=== PATIENT | female | born 1945 | race Caucasian/White ===

== ENCOUNTER 2017-03-11 06:03 | Inpatient (IN) ==
[2017-03-11 07:03] LABS: Basophils % 0.7 % (0.0-0.8); Eosinophils # 0.2 10*3/uL (0.0-0.87); Eosinophils % 3.6 % (0.00-10.9); Hemoglobin 12.3 GM/DL (12.0-16.0); Immature Granulocytes % 0.2 %; Immature Granulocytes Absolute 0.01 #; Lymphocytes # 1.8 10*3/uL (1.4-4.0); Mean Corpuscular HGB Conc 33.2 GM/DL (32-36); Mean Corpuscular Hemoglobin 30 PG (27-34); Mean Platelet Volume 10.7 FL (9.6-12.0); Monocytes # 0.5 10*3/uL (0.11-0.8); Monocytes % 8.3 % (1.7-12.7); Neutrophils # 3.6 10*3/uL (1.4-7.4); Neutrophils % 58.2 % (38.7-73.9); Platelet Count 173 T/CUMM (130-400); Red Blood Count 4.11 MC/CUMM (3.8-5.5); Red Cell Distribution Width 13.7 % (9.3-17.3); White Blood Count 6.1 T/CUMM (4-12)
[2017-03-11 07:23] LABS: PT Patient Result 10.7 SECS; Partial Thromboplastin Time 28.7 SECS (0-40)
[2017-03-11] MEDS ORDERED: LIDOCAINE 1% 20 ML VIAL ONE (07:39)
[2017-03-11 07:42] LABS: Calcium 8.8 MG/DL (8.5-10.1); Magnesium 2.1 MG/DL (1.8-2.4); Osmolality,Calculated 278.5 MOS/KG (273-304); Potassium 3.5 MMOL/L (3.5-5.1)
[2017-03-11] MEDS ORDERED: HEPARIN 5,000 UNIT/1 ML VIAL ONE (07:49)
[2017-03-11] MEDS ORDERED: HEPARIN/NACL 0.9% 2 UNITS/ML 1,000 ML IV ONE ×2 (08:23→11:41)
[2017-03-11] MEDS ORDERED: HEPARIN DRIP 25,000 UNITS/500 ML PREMIX IV ONE (09:46)
[2017-03-11 10:41] LABS: Apearance,Urine CLEAR (Clear); Bilirubin,Urine Negative (Negative); Blood, Urine Negative (Negative); Glucose,Urine (UA) Negative (Negative); Ketones,Urine Negative (Negative); Nitrite,Urine Negative (Negative); Protein,Urine Negative; RBC,Urine 3 /HPF (0-4); Urine Color Straw (Yellow); Urine Specific Gravity 1.004 (1.001-1.035); Urine Urobilinogen < 2.0 EU/DL (0.2-1.0); WBC,Urine <1 /HPF (0-6)
[2017-03-11] MEDS ORDERED: ADENOSINE 90 MG/30 ML VIAL IV ONE (12:40)
[2017-03-11] MEDS ORDERED: ONDANSETRON 4 MG/2 ML VIAL IV PRN (12:54)
[2017-03-11] MEDS ORDERED: GLUCAGON 1 MG VIAL IM PRN (12:54)
[2017-03-11] MEDS ORDERED: DEXTROSE 50% 25 GM/50 ML VIAL IV PRN (12:54)
[2017-03-11] MEDS ORDERED: MORPHINE 2 MG/1 ML SYRINGE IV PRN (12:54)
[2017-03-11] MEDS ORDERED: ACETAMINOPHEN 325 MG TABLET PO PRN (12:54)
[2017-03-11] MEDS ORDERED: ZALEPLON 5 MG CAPSULE PO PRN (12:54)
[2017-03-11] MEDS ORDERED: PROPOFOL 200 MG/20 ML VIAL IV ONE (13:59)
[2017-03-11] MEDS ORDERED: MIDAZOLAM 2 MG/2 ML VIAL ONE (13:59)
[2017-03-11] MEDS ORDERED: HEPARIN 10,000 UNIT/10 ML VIAL ONE (13:59)
[2017-03-11] MEDS ORDERED: PHENYLEPHRINE DRIP 20 MG/250 ML PREMIX IV ONE (13:59)
[2017-03-11] MEDS ORDERED: SEVOFLURANE 1 UNIT/15 MINUTE INH ONE (13:59)
[2017-03-11] MEDS ORDERED: ONDANSETRON 4 MG/2 ML VIAL ONE (14:00)
[2017-03-11] MEDS ORDERED: fentaNYL 100 MCG/2 ML VIAL ONE (14:00)
[2017-03-11] MEDS ORDERED: METOCLOPRAMIDE 10 MG/2 ML VIAL ONE (14:00)
[2017-03-11] MEDS ORDERED: DEXAMETHASONE 10 MG/1 ML VIAL ONE (14:00)
[2017-03-11] MEDS ORDERED: PROTAMINE SULFATE 50 MG/5 ML VIAL IV ONE (14:00)
[2017-03-11] MEDS ORDERED: LACTATED RINGERS 1,000 ML IV ONE (14:01)
[2017-03-11] MEDS ORDERED: ROCURONIUM 100 MG/10 ML VIAL IV ONE (14:01)
[2017-03-11] MEDS ORDERED: diphenhydrAMINE 50 MG/1 ML VIAL IV ONE (14:32)
[2017-03-11] MEDS ORDERED: hydrALAZINE 25 MG TABLET PO SCH (15:00)
[2017-03-11] MEDS ORDERED: diphenhydrAMINE CAP 25 MG CAPSULE PO PRN (17:20)
[2017-03-11] MEDS ORDERED: BISACODYL 5 MG TABLET PO PRN (17:20)
[2017-03-11] MEDS: CLOPIDOGREL 75 MG TABLET PO SCH (17:26)
[2017-03-11] MEDS: CARVEDILOL 25 MG TABLET PO SCH ×2 (17:27→20:22)
[2017-03-11] MEDS: ASCORBIC ACID 500 MG TABLET PO SCH (17:27)
[2017-03-11] MEDS ORDERED: FUROSEMIDE 20 MG/2 ML VIAL IV ONE (20:00)
[2017-03-11] MEDS: DABIGATRAN 150 MG CAPSULE PO SCH (20:21)
[2017-03-11] MEDS: LORATADINE 10 MG TABLET PO SCH (20:22)
[2017-03-11] MEDS: PANTOPRAZOLE 40 MG TABLET PO SCH (20:22)
[2017-03-11] MEDS: FLECAINIDE 100 MG TABLET PO SCH (21:02)
[2017-03-12 05:02] LABS: Basophils % 0.1 % (0.0-0.8); Hematocrit 33.4 VOL% (35.7-47.0); Hemoglobin 11.3 GM/DL (12.0-16.0); Immature Granulocytes % 0.5 %; Immature Granulocytes Absolute 0.04 #; Lymphocytes # 1.2 10*3/uL (1.4-4.0); Lymphocytes % 13.2 % (21.3-54.2); Mean Corpuscular HGB Conc 33.8 GM/DL (32-36); Mean Corpuscular Hemoglobin 30 PG (27-34); Mean Corpuscular Volume 88.6 FL (87-102); Mean Platelet Volume 10.9 FL (9.6-12.0); Monocytes # 0.3 10*3/uL (0.11-0.8); Monocytes % 3.2 % (1.7-12.7); Neutrophils # 7.3 10*3/uL (1.4-7.4); Platelet Count 156 T/CUMM (130-400); Red Blood Count 3.77 MC/CUMM (3.8-5.5); Red Cell Distribution Width 13.5 % (9.3-17.3); White Blood Count 8.8 T/CUMM (4-12)
[2017-03-12 05:45] LABS: Calcium 8.3 MG/DL (8.5-10.1); Osmolality,Calculated 280.5 MOS/KG (273-304); Potassium 3.4 MMOL/L (3.5-5.1)
[2017-03-12] MEDS: CLOPIDOGREL 75 MG TABLET PO SCH (08:23)
[2017-03-12] MEDS: LOSARTAN 50 MG TABLET PO SCH (08:23)
[2017-03-12] MEDS: ASCORBIC ACID 500 MG TABLET PO SCH (08:23)
[2017-03-12] MEDS: POTASSIUM GLUCONATE 500 MG TABLET PO SCH (08:23)
[2017-03-12] MEDS: CARVEDILOL 25 MG TABLET PO SCH ×2 (08:23→21:35)
[2017-03-12] MEDS: FLECAINIDE 100 MG TABLET PO SCH (08:23)
[2017-03-12] MEDS: DABIGATRAN 150 MG CAPSULE PO SCH ×2 (08:23→21:36)
[2017-03-12] MEDS: FUROSEMIDE 20 MG TABLET PO SCH (08:24)
[2017-03-12] MEDS: PANTOPRAZOLE 40 MG TABLET PO SCH ×2 (08:24→21:35)
[2017-03-12] MEDS: MULTIVITAMIN (CENTRUM) TABLET PO SCH (08:24)
[2017-03-12] MEDS: MAGNESIUM OXIDE 400 MG TABLET PO SCH (08:24)
[2017-03-12] MEDS: DILTIAZEM CD 120 MG CAPSULE PO SCH ×2 (08:59→21:35)
[2017-03-12] MEDS ORDERED: POLYETHYLENE GLYCOL POWDER 17 GM PACK PO PRN (10:54)
[2017-03-12] MEDS: LORATADINE 10 MG TABLET PO SCH (21:35)
[2017-03-12] MEDS: FLECAINIDE 50 MG TABLET PO SCH (21:35)
[2017-03-13 08:39] LABS: Calcium 8.3 MG/DL (8.5-10.1); Magnesium 2.1 MG/DL (1.8-2.4); Osmolality,Calculated 283.3 MOS/KG (273-304); Potassium 3.4 MMOL/L (3.5-5.1)
[2017-03-13] MEDS ORDERED: METOCLOPRAMIDE 5 MG TABLET PO PRN (10:30)
[2017-03-13] MEDS: FLECAINIDE 50 MG TABLET PO SCH ×2 (11:54→21:20)
[2017-03-13] MEDS: CLOPIDOGREL 75 MG TABLET PO SCH (11:54)
[2017-03-13] MEDS: ASCORBIC ACID 500 MG TABLET PO SCH (11:54)
[2017-03-13] MEDS: POTASSIUM GLUCONATE 500 MG TABLET PO SCH (11:55)
[2017-03-13] MEDS: DILTIAZEM CD 120 MG CAPSULE PO SCH ×2 (11:55→21:21)
[2017-03-13] MEDS: LOSARTAN 50 MG TABLET PO SCH (11:55)
[2017-03-13] MEDS: DABIGATRAN 150 MG CAPSULE PO SCH (11:56)
[2017-03-13] MEDS: MULTIVITAMIN (CENTRUM) TABLET PO SCH (11:56)
[2017-03-13] MEDS: PANTOPRAZOLE 40 MG TABLET PO SCH ×2 (11:56→21:21)
[2017-03-13] MEDS: FUROSEMIDE 20 MG TABLET PO SCH (11:56)
[2017-03-13] MEDS: CARVEDILOL 25 MG TABLET PO SCH ×2 (11:56→21:21)
[2017-03-13] MEDS: MAGNESIUM OXIDE 400 MG TABLET PO SCH (12:06)
[2017-03-13] MEDS: LORATADINE 10 MG TABLET PO SCH (21:21)
[2017-03-14] MEDS ORDERED: VANCOMYCIN 500 MG VIAL IRRIG ONE (06:00)
[2017-03-14] MEDS ORDERED: VANCOMYCIN INJ 1,000 MG in SODIUM CHLORIDE 0.9% 250 ML IV ONE (06:00)
[2017-03-14 06:12] LABS: Calcium 8.5 MG/DL (8.5-10.1); Osmolality,Calculated 281.4 MOS/KG (273-304); Potassium 3.4 MMOL/L (3.5-5.1)
[2017-03-14 07:07] LABS: Basophils % 0.5 % (0.0-0.8); Eosinophils # 0.1 10*3/uL (0.0-0.87); Eosinophils % 1.4 % (0.00-10.9); Hemoglobin 10.7 GM/DL (12.0-16.0); Immature Granulocytes % 0.3 %; Immature Granulocytes Absolute 0.03 #; Lymphocytes % 22.9 % (21.3-54.2); Mean Corpuscular HGB Conc 32.4 GM/DL (32-36); Mean Corpuscular Hemoglobin 30 PG (27-34); Mean Corpuscular Volume 91.4 FL (87-102); Mean Platelet Volume 11.4 FL (9.6-12.0); Monocytes # 0.7 10*3/uL (0.11-0.8); Monocytes % 7.3 % (1.7-12.7); Neutrophils % 67.6 % (38.7-73.9); Platelet Count 163 T/CUMM (130-400); Red Blood Count 3.61 MC/CUMM (3.8-5.5); Red Cell Distribution Width 13.7 % (9.3-17.3); White Blood Count 8.9 T/CUMM (4-12)
[2017-03-14] MEDS ORDERED: MAGNESIUM CHLORIDE 64 MG TABLET PO SCH (09:00)
[2017-03-14] MEDS ORDERED: POLYETHYLENE GLYCOL POWDER 17 GM PACK PO SCH (09:00)
[2017-03-14 11:42] VITALS: BP 151/93
[2017-03-14] MEDS: FLECAINIDE 50 MG TABLET PO SCH (13:45)
[2017-03-14] MEDS: ASCORBIC ACID 500 MG TABLET PO SCH (13:46)
[2017-03-14] MEDS: CARVEDILOL 25 MG TABLET PO SCH (13:47)
[2017-03-14] MEDS: CLOPIDOGREL 75 MG TABLET PO SCH (13:48)
[2017-03-14] MEDS: LOSARTAN 50 MG TABLET PO SCH (13:48)
[2017-03-14] MEDS: PANTOPRAZOLE 40 MG TABLET PO SCH (13:49)
[2017-03-14] MEDS: POTASSIUM GLUCONATE 500 MG TABLET PO SCH (13:49)
[2017-03-14] MEDS: MULTIVITAMIN (CENTRUM) TABLET PO SCH (13:49)
[2017-03-14] MEDS: FUROSEMIDE 20 MG TABLET PO SCH (13:50)
[2017-03-14] MEDS: DILTIAZEM CD 120 MG CAPSULE PO SCH (13:50)
== END 2017-03-14 14:18 | disposition home or self-care (01) | DRG 274 ==
LOC: N.CL 06:03 → N.CC 15:43 → N.TELES 21:58
PROVIDERS: ADMIT Internal Medicine Clinical Cardiac Electrophysiology; ATTEND Internal Medicine Clinical Cardiac Electrophysiology

== ENCOUNTER 2017-05-24 15:47 | Inpatient (IN) ==
[2017-05-24] MEDS ORDERED: DIGOXIN 0.5 MG/2 ML AMP IV STA (16:29)
[2017-05-24 16:34] LABS: Basophils # 0.1 10*3/uL (0.0-0.2); Basophils % 0.5 % (0.0-0.8); Eosinophils # 0.2 10*3/uL (0.0-0.87); Eosinophils % 2.2 % (0.00-10.9); Hematocrit 37.5 VOL% (35.7-47.0); Immature Granulocytes % 0.7 %; Immature Granulocytes Absolute 0.08 #; Lymphocytes % 18.2 % (21.3-54.2); Mean Corpuscular Hemoglobin 30 PG (27-34); Mean Corpuscular Volume 93.1 FL (87-102); Mean Platelet Volume 10.9 FL (9.6-12.0); Monocytes # 0.7 10*3/uL (0.11-0.8); Neutrophils % 72.4 % (38.7-73.9); Platelet Count 230 T/CUMM (130-400); Red Blood Count 4.03 MC/CUMM (3.8-5.5); Red Cell Distribution Width 13.7 % (9.3-17.3); White Blood Count 11.1 T/CUMM (4-12)
[2017-05-24 16:42] LABS: PT Patient Result 10.4 SECS
[2017-05-24 16:53] LABS: Alanine Aminotransferase 18 U/L (13-56); Albumin 3.7 G/DL (3.4-5.0); Alkaline Phosphatase 84 U/L (45-117); Aspartate Amino Transferase 21 U/L (0-37); Blood Urea Nitrogen 29 MG/DL (7-18); Calcium 8.8 MG/DL (8.5-10.1); Glucose 133 MG/DL (74-106); Magnesium 2.1 MG/DL (1.8-2.4); Osmolality,Calculated 288.3 MOS/KG (273-304); Sodium 141 MMOL/L (136-145); Total Protein 7.7 G/DL (6.4-8.3); Troponin I Only < 0.015 NG/ML (0.00-0.045)
[2017-05-24] MEDS ORDERED: DIGOXIN 0.5 MG/2 ML AMP ONE (16:54)
[2017-05-24] MEDS ORDERED: FLECAINIDE 100 MG TABLET PO SCH (21:00)
[2017-05-24] MEDS ORDERED: CARVEDILOL 25 MG TABLET PO SCH (21:00)
[2017-05-24] MEDS: DILTIAZEM CD 180 MG CAPSULE PO SCH (21:42)
[2017-05-24] MEDS: CARVEDILOL 25 MG TABLET PO SCH (21:43)
[2017-05-24] MEDS ORDERED: MAGNESIUM SULF RIDER 4 GM in PREMIX 1 EACH IV PRN (22:23)
[2017-05-24] MEDS ORDERED: MAGNESIUM SULF RIDER 2 GM in PREMIX 1 EACH IV PRN (22:23)
[2017-05-24] MEDS: LORATADINE 10 MG TABLET PO SCH (22:46)
[2017-05-24] MEDS: FLECAINIDE 50 MG TABLET PO SCH (22:46)
[2017-05-25] MEDS ORDERED: FUROSEMIDE 20 MG TABLET PO SCH (08:00)
[2017-05-25] MEDS ORDERED: CLOPIDOGREL 75 MG TABLET PO SCH (09:00)
[2017-05-25] MEDS ORDERED: LOSARTAN 50 MG TABLET PO SCH (09:00)
[2017-05-25] MEDS ORDERED: FLECAINIDE 50 MG TABLET PO SCH (09:00)
[2017-05-25] MEDS ORDERED: SODIUM CHLORIDE 0.9% 500 ML IV ONE (09:39)
[2017-05-25] MEDS: FLECAINIDE 50 MG TABLET PO SCH ×2 (10:43→22:07)
[2017-05-25] MEDS: MULTIVITAMIN (CENTRUM) TABLET PO SCH (10:43)
[2017-05-25] MEDS: POTASSIUM CHLORIDE 20 MEQ TABLET PO SCH ×2 (10:44→12:38)
[2017-05-25] MEDS: APIXABAN 5 MG TABLET PO SCH ×2 (10:45→22:06)
[2017-05-25] MEDS: DILTIAZEM CD 180 MG CAPSULE PO SCH ×2 (10:45→22:02)
[2017-05-25] MEDS: ASCORBIC ACID 500 MG TABLET PO SCH ×2 (10:46→12:38)
[2017-05-25] MEDS: PANTOPRAZOLE 40 MG TABLET PO SCH (10:46)
[2017-05-25] MEDS: CARVEDILOL 25 MG TABLET PO SCH ×2 (10:47→22:07)
[2017-05-25] MEDS: SODIUM CHLORIDE 0.9% 1,000 ML IV SCH ×3 (12:19→23:13)
[2017-05-25] MEDS: MAGNESIUM OXIDE 400 MG TABLET PO SCH (12:38)
[2017-05-25] MEDS ORDERED: LORATADINE 10 MG TABLET PO SCH ×2 (21:00)
[2017-05-25] MEDS: LORATADINE 10 MG TABLET PO SCH (22:06)
[2017-05-26 04:54] LABS: Basophils % 0.6 % (0.0-0.8); Eosinophils # 0.2 10*3/uL (0.0-0.87); Eosinophils % 2.8 % (0.00-10.9); Hematocrit 29.7 VOL% (35.7-47.0); Hemoglobin 9.3 GM/DL (12.0-16.0); Immature Granulocytes % 0.3 %; Immature Granulocytes Absolute 0.02 #; Lymphocytes # 1.5 10*3/uL (1.4-4.0); Lymphocytes % 24.2 % (21.3-54.2); Mean Corpuscular HGB Conc 31.3 GM/DL (32-36); Mean Corpuscular Hemoglobin 30 PG (27-34); Mean Corpuscular Volume 94.3 FL (87-102); Mean Platelet Volume 10.8 FL (9.6-12.0); Monocytes # 0.5 10*3/uL (0.11-0.8); Monocytes % 8.2 % (1.7-12.7); Neutrophils % 63.9 % (38.7-73.9); Platelet Count 145 T/CUMM (130-400); Red Blood Count 3.15 MC/CUMM (3.8-5.5); Red Cell Distribution Width 13.5 % (9.3-17.3); White Blood Count 6.3 T/CUMM (4-12)
[2017-05-26 05:28] LABS: Calcium 8.2 MG/DL (8.5-10.1); Magnesium 2.1 MG/DL (1.8-2.4); Osmolality,Calculated 284.1 MOS/KG (273-304); Potassium 3.7 MMOL/L (3.5-5.1)
[2017-05-26 08:50] LABS: % Iron Saturation 10.8 % (18-50)
[2017-05-26] MEDS: SODIUM CHLORIDE 0.9% 1,000 ML IV SCH ×2 (09:01→13:18)
[2017-05-26 09:29] LABS: Folate 18.7 NG/ML (5.4-24.0)
[2017-05-26] MEDS: ASCORBIC ACID 500 MG TABLET PO SCH ×2 (13:19→13:24)
[2017-05-26] MEDS: POTASSIUM CHLORIDE 20 MEQ TABLET PO SCH ×3 (13:19→13:25)
[2017-05-26] MEDS: MAGNESIUM OXIDE 400 MG TABLET PO SCH (13:24)
[2017-05-26] MEDS: APIXABAN 5 MG TABLET PO SCH ×2 (13:25→21:28)
[2017-05-26] MEDS: DILTIAZEM CD 240 MG CAPSULE PO SCH ×2 (13:25→21:28)
[2017-05-26] MEDS: PANTOPRAZOLE 40 MG TABLET PO SCH (13:25)
[2017-05-26] MEDS: FLECAINIDE 50 MG TABLET PO SCH ×2 (13:25→21:28)
[2017-05-26] MEDS: CARVEDILOL 25 MG TABLET PO SCH ×2 (13:25→21:28)
[2017-05-26] MEDS: MULTIVITAMIN (CENTRUM) TABLET PO SCH (13:25)
[2017-05-26] MEDS ORDERED: ZALEPLON 5 MG CAPSULE PO PRN (13:34)
[2017-05-26] MEDS ORDERED: ACETAMINOPHEN 325 MG TABLET PO PRN (13:34)
[2017-05-26] MEDS ORDERED: guaiFENesin/DM ER 600-30 MG TABLET PO PRN (13:34)
[2017-05-26] MEDS ORDERED: ONDANSETRON 4 MG/2 ML VIAL IV PRN (13:34)
[2017-05-26] MEDS ORDERED: BISACODYL 5 MG TABLET PO PRN (13:34)
[2017-05-26] MEDS: LORATADINE 10 MG TABLET PO SCH (21:28)
[2017-05-27 08:44] LABS: Basophils % 0.7 % (0.0-0.8); Eosinophils # 0.2 10*3/uL (0.0-0.87); Eosinophils % 3.4 % (0.00-10.9); Hematocrit 31.9 VOL% (35.7-47.0); Hemoglobin 10.2 GM/DL (12.0-16.0); Immature Granulocytes % 0.5 %; Immature Granulocytes Absolute 0.03 #; Lymphocytes # 1.5 10*3/uL (1.4-4.0); Lymphocytes % 24.5 % (21.3-54.2); Mean Corpuscular Hemoglobin 30 PG (27-34); Mean Corpuscular Volume 94.1 FL (87-102); Mean Platelet Volume 10.9 FL (9.6-12.0); Monocytes # 0.4 10*3/uL (0.11-0.8); Monocytes % 7.2 % (1.7-12.7); Neutrophils # 3.9 10*3/uL (1.4-7.4); Neutrophils % 63.7 % (38.7-73.9); Platelet Count 169 T/CUMM (130-400); Red Blood Count 3.39 MC/CUMM (3.8-5.5); Red Cell Distribution Width 13.5 % (9.3-17.3); White Blood Count 6.1 T/CUMM (4-12)
[2017-05-27] MEDS: POTASSIUM CHLORIDE 20 MEQ TABLET PO SCH ×2 (09:09→13:00)
[2017-05-27] MEDS: ASCORBIC ACID 500 MG TABLET PO SCH ×2 (09:09→13:00)
[2017-05-27] MEDS: CARVEDILOL 25 MG TABLET PO SCH (09:09)
[2017-05-27] MEDS: APIXABAN 5 MG TABLET PO SCH (09:09)
[2017-05-27] MEDS: PANTOPRAZOLE 40 MG TABLET PO SCH (09:09)
[2017-05-27 09:10] LABS: Calcium 8.9 MG/DL (8.5-10.1); Magnesium 2.2 MG/DL (1.8-2.4); Osmolality,Calculated 284.3 MOS/KG (273-304); Potassium 4.1 MMOL/L (3.5-5.1)
[2017-05-27] MEDS: DILTIAZEM CD 240 MG CAPSULE PO SCH (09:10)
[2017-05-27] MEDS: FLECAINIDE 50 MG TABLET PO SCH (09:10)
[2017-05-27] MEDS: MULTIVITAMIN (CENTRUM) TABLET PO SCH (09:10)
[2017-05-27 11:25] VITALS: BP 94/55
[2017-05-27] MEDS: MAGNESIUM OXIDE 400 MG TABLET PO SCH (13:00)
== END 2017-05-27 13:43 | disposition home or self-care (01) | DRG 310 ==
LOC: N.ED 15:47 → N.EDINP 15:47 → SUATTDRO 19:10 → N.TELEN 19:30
PROVIDERS: ADMIT Internal Medicine Cardiovascular Disease; ATTEND Internal Medicine Cardiovascular Disease

== ENCOUNTER 2017-11-03 07:24 | Observation (INO) ==
[2017-11-03] MEDS ORDERED: DILTIAZEM 50 MG/10 ML VIAL IV ONE (07:41)
[2017-11-03] MEDS ORDERED: DILTIAZEM 50 MG/10 ML VIAL IV STA (07:44)
[2017-11-03] MEDS ORDERED: DILTIAZEM 100 MG VIAL.ADD IV ONE (07:46)
[2017-11-03] MEDS ORDERED: SODIUM CHLORIDE 0.9% 100 ML IV ONE (07:47)
[2017-11-03] MEDS: DILTIAZEM INJ 100 MG in SODIUM CHLORIDE 0.9% 100 ML IV SCH ×2 (07:59→12:43)
[2017-11-03 08:25] LABS: Basophils # 0.1 10*3/uL (0.0-0.2); Basophils % 0.9 % (0.0-0.8); Eosinophils # 0.1 10*3/uL (0.0-0.87); Eosinophils % 1.6 % (0.00-10.9); Hematocrit 41.1 VOL% (35.7-47.0); Hemoglobin 13.6 GM/DL (12.0-16.0); Immature Granulocytes % 0.3 %; Immature Granulocytes Absolute 0.02 #; Lymphocytes # 1.3 10*3/uL (1.4-4.0); Lymphocytes % 19.4 % (21.3-54.2); Mean Corpuscular HGB Conc 33.1 GM/DL (32-36); Mean Corpuscular Hemoglobin 29 PG (27-34); Mean Corpuscular Volume 88.6 FL (87-102); Mean Platelet Volume 10.5 FL (9.6-12.0); Monocytes # 0.4 10*3/uL (0.11-0.8); Monocytes % 6.1 % (1.7-12.7); Neutrophils # 4.8 10*3/uL (1.4-7.4); Neutrophils % 71.7 % (38.7-73.9); Platelet Count 180 T/CUMM (130-400); Red Blood Count 4.64 MC/CUMM (3.8-5.5); Red Cell Distribution Width 14.2 % (9.3-17.3); White Blood Count 6.7 T/CUMM (4-12)
[2017-11-03 08:37] LABS: PT Patient Result 10.7 SECS; Partial Thromboplastin Time 28.6 SECS (0-40)
[2017-11-03 08:49] LABS: Alanine Aminotransferase 16 U/L (13-56); Albumin 3.6 G/DL (3.4-5.0); Alkaline Phosphatase 90 U/L (45-117); Aspartate Amino Transferase 17 U/L (0-37); Calcium 8.6 MG/DL (8.5-10.1); Total Protein 7.9 G/DL (6.4-8.3)
[2017-11-03 08:50] LABS: Blood Urea Nitrogen 12 MG/DL (7-18); Glucose 123 MG/DL (74-106); Osmolality,Calculated 283.1 MOS/KG (273-304); Potassium 3.6 MMOL/L (3.5-5.1); Sodium 142 MMOL/L (136-145); Troponin I Only < 0.015 NG/ML (0.00-0.045)
[2017-11-03] MEDS ORDERED: LACTULOSE 20 GM/30 ML UDCUP PO PRN (11:33)
[2017-11-03] MEDS ORDERED: ZALEPLON 5 MG CAPSULE PO PRN (11:33)
[2017-11-03] MEDS ORDERED: ACETAMINOPHEN 325 MG TABLET PO PRN (11:33)
[2017-11-03] MEDS ORDERED: MAGNESIUM SULF RIDER 4 GM in PREMIX 1 EACH IV PRN (11:33)
[2017-11-03] MEDS ORDERED: MAGNESIUM SULF RIDER 2 GM in PREMIX 1 EACH IV PRN (11:33)
[2017-11-03] MEDS ORDERED: guaiFENesin/DM ER 600-30 MG TABLET PO PRN (11:33)
[2017-11-03] MEDS ORDERED: diphenhydrAMINE CAP 25 MG CAPSULE PO PRN (11:33)
[2017-11-03] MEDS ORDERED: ONDANSETRON 4 MG/2 ML VIAL IV PRN (11:33)
[2017-11-03] MEDS: FUROSEMIDE 20 MG TABLET PO SCH (16:30)
[2017-11-03] MEDS: POTASSIUM CHLORIDE 20 MEQ TABLET PO SCH (16:30)
[2017-11-03] MEDS: LOSARTAN 50 MG TABLET PO SCH (16:30)
[2017-11-03] MEDS: APIXABAN 5 MG TABLET PO SCH ×2 (16:30→20:18)
[2017-11-03] MEDS: hydroCHLOROthiazide 25 MG TABLET PO SCH (16:30)
[2017-11-03] MEDS: PANTOPRAZOLE 40 MG TABLET PO SCH (16:31)
[2017-11-03] MEDS: MAGNESIUM OXIDE 400 MG TABLET PO SCH (16:31)
[2017-11-03] MEDS: VITAMIN E 400 UNIT CAPSULE PO SCH (16:32)
[2017-11-03] MEDS: ASCORBIC ACID 500 MG TABLET PO SCH (16:32)
[2017-11-03] MEDS ORDERED: METOPROLOL TARTRATE 25 MG TABLET PO ONE (19:50)
[2017-11-03] MEDS: SIMETHICONE CHEW 125 MG TABLET PO PRN (20:18)
[2017-11-03] MEDS: DOCUSATE SODIUM 100 MG CAPSULE PO SCH (20:18)
[2017-11-03] MEDS ORDERED: LORATADINE 10 MG TABLET PO SCH (21:00)
[2017-11-03] MEDS: METOPROLOL TARTRATE 25 MG TABLET PO SCH (21:53)
[2017-11-03] MEDS ORDERED: SIMETHICONE CHEW 125 MG TABLET PO SCH (22:00)
[2017-11-04] MEDS: SIMETHICONE CHEW 125 MG TABLET PO PRN (00:20)
[2017-11-04 04:50] LABS: Basophils # 0.1 10*3/uL (0.0-0.2); Basophils % 0.9 % (0.0-0.8); Eosinophils # 0.2 10*3/uL (0.0-0.87); Hemoglobin 12.9 GM/DL (12.0-16.0); Immature Granulocytes % 0.4 %; Immature Granulocytes Absolute 0.03 #; Lymphocytes # 2.1 10*3/uL (1.4-4.0); Lymphocytes % 31.7 % (21.3-54.2); Mean Corpuscular HGB Conc 33.9 GM/DL (32-36); Mean Corpuscular Hemoglobin 30 PG (27-34); Mean Platelet Volume 10.4 FL (9.6-12.0); Monocytes # 0.5 10*3/uL (0.11-0.8); Monocytes % 6.7 % (1.7-12.7); Neutrophils # 3.8 10*3/uL (1.4-7.4); Neutrophils % 57.3 % (38.7-73.9); Platelet Count 182 T/CUMM (130-400); Red Blood Count 4.32 MC/CUMM (3.8-5.5); Red Cell Distribution Width 14.5 % (9.3-17.3); White Blood Count 6.7 T/CUMM (4-12)
[2017-11-04 05:23] LABS: Calcium 8.8 MG/DL (8.5-10.1); Osmolality,Calculated 282.1 MOS/KG (273-304); Potassium 3.6 MMOL/L (3.5-5.1); Risk Ratio 4.29; VLDL CHOLESTEROL 20.4 MG/DL
[2017-11-04 08:11] LABS: Apearance,Urine CLEAR (Clear); Bacteria,Urine Occasional /HPF (Few); Bilirubin,Urine Negative (Negative); Blood, Urine Negative (Negative); Glucose,Urine (UA) Negative (Negative); Ketones,Urine Negative (Negative); Mucus,Urine Occasional /LPF (Occasional); Nitrite,Urine Negative (Negative); Protein,Urine Negative; RBC,Urine 2 /HPF (0-4); Squamous Epithelial Cell,Urine Occasional /HPF (0-10); Urine Color Yellow (Yellow); Urine Specific Gravity 1.008 (1.001-1.035); Urine Urobilinogen < 2.0 EU/DL (0.2-1.0); WBC,Urine 4 /HPF (0-6)
[2017-11-04] MEDS: ASCORBIC ACID 500 MG TABLET PO SCH ×2 (09:46→12:10)
[2017-11-04] MEDS: FUROSEMIDE 20 MG TABLET PO SCH (09:46)
[2017-11-04] MEDS: PANTOPRAZOLE 40 MG TABLET PO SCH (09:47)
[2017-11-04] MEDS: POTASSIUM CHLORIDE 20 MEQ TABLET PO SCH (09:47)
[2017-11-04] MEDS: APIXABAN 5 MG TABLET PO SCH (09:47)
[2017-11-04] MEDS: LOSARTAN 50 MG TABLET PO SCH (09:47)
[2017-11-04] MEDS: hydroCHLOROthiazide 25 MG TABLET PO SCH (09:47)
[2017-11-04] MEDS: METOPROLOL TARTRATE 25 MG TABLET PO SCH (09:47)
[2017-11-04] MEDS: DOCUSATE SODIUM 100 MG CAPSULE PO SCH (09:47)
[2017-11-04] MEDS: VITAMIN E 400 UNIT CAPSULE PO SCH (09:47)
[2017-11-04] MEDS ORDERED: DILTIAZEM CD 240 MG CAPSULE PO SCH (10:00)
[2017-11-04] MEDS: DILTIAZEM INJ 100 MG in SODIUM CHLORIDE 0.9% 100 ML IV SCH (10:16)
[2017-11-04] MEDS ORDERED: [UNRECOGNIZED DRUG - OTHER] PO SCH (12:00)
[2017-11-04] MEDS ORDERED: HAIR SKIN PO SCH (12:00)
[2017-11-04] MEDS: MAGNESIUM OXIDE 400 MG TABLET PO SCH (12:10)
[2017-11-04 15:12] VITALS: BP 108/66
== END 2017-11-04 16:09 | disposition home or self-care (01) ==
LOC: EDBD → EDUNIT# → N.EDINP 07:24 → N.ED 07:24 → N.2W 12:49 → N.TELEN 15:49
PROVIDERS: ADMIT Internal Medicine Cardiovascular Disease; ATTEND Internal Medicine Cardiovascular Disease

== ENCOUNTER 2019-01-07 20:55 | Observation (INO) ==
[2019-01-07 23:21] LABS: Basophils # 0.1 10*3/uL (0.0-0.2); Basophils % 0.9 % (0.0-0.8); Eosinophils # 0.2 10*3/uL (0.0-0.87); Eosinophils % 3.1 % (0.00-10.9); Hematocrit 36.2 VOL% (35.7-47.0); Hemoglobin 11.8 GM/DL (12.0-16.0); Immature Granulocytes % 0.4 %; Immature Granulocytes Absolute 0.03 #; Lymphocytes # 1.4 10*3/uL (1.4-4.0); Lymphocytes % 20.6 % (21.3-54.2); Mean Corpuscular HGB Conc 32.6 GM/DL (32-36); Mean Corpuscular Volume 92.1 FL (87-102); Mean Platelet Volume 11.6 FL (9.6-12.0); Monocytes % 7.8 % (1.7-12.7); Neutrophils % 67.2 % (38.7-73.9); Platelet Count 176 T/CUMM (130-400); Red Blood Count 3.93 MC/CUMM (3.8-5.5); Red Cell Distribution Width 13.3 % (9.3-17.3); White Blood Count 6.8 T/CUMM (4-12)
[2019-01-07 23:44] LABS: Albumin 3.5 G/DL (3.4-5.0); Bilirubin,Total 1.3 MG/DL (0.2-1.0); Calcium 9.1 MG/DL (8.5-10.1); Osmolality,Calculated 284.1 MOS/KG (273-304)
[2019-01-08] MEDS ORDERED: ONDANSETRON 4 MG/2 ML VIAL IV PRN (00:35)
[2019-01-08] MEDS ORDERED: ACETAMINOPHEN 325 MG TABLET PO PRN (00:35)
[2019-01-08] MEDS ORDERED: POTASSIUM CHLORIDE 20 MEQ TABLET PO STA (01:25)
[2019-01-08] MEDS ORDERED: POTASSIUM CHLORIDE 20 MEQ TABLET PO PRN (01:25)
[2019-01-08 07:29] LABS: Albumin 3.3 G/DL (3.4-5.0); Bilirubin,Total 0.8 MG/DL (0.2-1.0); Osmolality,Calculated 278.4 MOS/KG (273-304); Total Protein 6.9 G/DL (6.4-8.3)
[2019-01-08] MEDS ORDERED: HAIR SKIN PO SCH (09:00)
[2019-01-08] MEDS ORDERED: [UNRECOGNIZED DRUG - OTHER] PO SCH (09:00)
[2019-01-08] MEDS ORDERED: PANTOPRAZOLE 40 MG TABLET PO SCH (09:00)
[2019-01-08] MEDS ORDERED: LOSARTAN 50 MG TABLET PO SCH (09:00)
[2019-01-08] MEDS ORDERED: POTASSIUM CHLORIDE 20 MEQ TABLET PO SCH (09:00)
[2019-01-08] MEDS ORDERED: METOPROLOL TARTRATE 50 MG TABLET PO SCH (09:00)
[2019-01-08] MEDS ORDERED: APIXABAN 5 MG TABLET PO SCH (09:00)
[2019-01-08] MEDS ORDERED: VITAMIN E 400 UNIT CAPSULE PO SCH (09:00)
[2019-01-08] MEDS ORDERED: GLUCOSAM CHON MSM1 C MANG BOSW PO SCH (09:00)
[2019-01-08] MEDS ORDERED: CHLORTHALIDONE 25 MG TABLET PO SCH (09:00)
[2019-01-08] MEDS ORDERED: ENOXAPARIN 40 MG/0.4 ML SYRINGE SUBCUT SCH (09:00)
[2019-01-08] MEDS: ASCORBIC ACID 500 MG TABLET PO SCH ×2 (09:27→11:37)
[2019-01-08 11:33] VITALS: BP 142/78
[2019-01-08] MEDS ORDERED: MAGNESIUM OXIDE 400 MG TABLET PO SCH (12:00)
[2019-01-08] MEDS ORDERED: LORATADINE 10 MG TABLET PO SCH (21:00)
== END 2019-01-08 15:20 | disposition home or self-care (01) ==
LOC: EDUNIT# → EDBD → N.EDINP 20:55 → N.ED 20:55 → N.2E 01-08 01:17
PROVIDERS: ADMIT Internal Medicine; ATTEND Internal Medicine